=== PATIENT | male | born 1995 | race Caucasian/White ===

== ENCOUNTER 2018-02-15 13:03 | Emergency (ER) | payer OTHER ==
[~2018-02-15] VITALS: Ht 177.8 cm; Wt 122.0 kg
[~2018-02-15 13:03] MED LIST: ALBU6.7H INH; PRED20 PO
[2018-02-15 13:22] VITALS: BP 145/90; PULSE 81; RESP 17; TEMP 98.7; O2SAT 99
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
[2018-02-15] MEDS ORDERED: IBUPROFEN 600 MG TAB PO ONE (13:45)
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
[2018-02-15 17:00] VITALS: BP 141/72
== END 2018-02-15 17:15 | disposition home or self-care (01) ==
LOC: NEPD 13:03
DX: S00.83XA Contusion of other part of head, initial encounter (principal); S90.31XA Contusion of right foot, initial encounter; V43.93XA Unspecified car occupant injured in collision with pick-up truck in traffic accident, initial encounter
CPT/HCPCS: 70450; 71045; 72125; 72170; 73630; 99285